=== PATIENT | female | born 1980 | race Caucasian/White ===

== ENCOUNTER → 2021-11-01 | Outpatient (CLI) | payer OTHER ==
[~2021-11-01] MED LIST: ALBU90OI INH; ALBU90OI6 INH; AMOX500 PO; Bactrim Ds Tab1 EACH PO; HYDACE5325 PO; OMEP20ER PO; Pyridium100 MG PO; RXHYD5325 PO; [UNRECOGNIZED DRUG - REMARK]; [UNRECOGNIZED DRUG - REMARK]
== END | disposition home or self-care (01) ==
LOC: LAB SHORT 14:35
DX: R30.0 Dysuria (principal)
CPT/HCPCS: 87086

== ENCOUNTER 2022-03-22 23:06 | Emergency (ER) | payer OTHER ==
[~2022-03-22] VITALS: Ht 165.1 cm; Wt 127.0 kg
[2022-03-22 23:28] LABS: Source, Urine Voided
[2022-03-22 23:47] LABS: Appearance, Urine Hazy (Clear); Blood, Urine 5+ (Neg); Glucose Qualitative, Urine Neg (Neg); Ketones, Urine Neg (Neg); Leukocyte Esterase, Urine 3+ (Neg); Nitrite, Urine Pos (Neg); Protein, Urine 2+ (Neg); Urobilinogen, Urine 2+ (Normal)
[2022-03-22 23:55] LABS: Bilirubin, Urine 2+ (Neg); Color, Urine Orange (P-Yellow)
[2022-03-22 23:56] LABS: Bacteria Mod /hpf; Squamous Epithelial Cells Few /hpf (Few); White Blood Cells, Urine 25-50 /hpf (0-5)
[2022-03-23] MEDS ORDERED: CEPH500 PO (00:29)
== END 2022-03-23 00:56 | disposition home or self-care (01) ==
LOC: ER 23:06
PROVIDERS: Student in an Organized Health Care Education/Training Program
DX: N39.0 Urinary tract infection, site not specified (principal); J45.909 Unspecified asthma, uncomplicated; Z88.6 Allergy status to analgesic agent; Z91.010 Allergy to peanuts; Z79.899 Other long term (current) drug therapy
CPT/HCPCS: 81001; 87077; 87086; 87186; 99283; A9270

== ENCOUNTER 2023-06-27 18:05 | Emergency (ER) | payer OTHER ==
[~2023-06-27] VITALS: Ht 165.1 cm; Wt 136.1 kg
[~2023-06-27 18:05] MED LIST changes: +CEPH500 PO
[2023-06-27 18:09] VITALS: BP 206/120
[2023-06-27] MEDS ORDERED: CYCL10 PO (19:30)
== END 2023-06-27 20:27 | disposition home or self-care (01) ==
LOC: ER 18:05
DX: S29.012A Strain of muscle and tendon of back wall of thorax, initial encounter (principal); Z91.010 Allergy to peanuts; Z88.8 Allergy status to other drugs, medicaments and biological substances; Z79.2 Long term (current) use of antibiotics; Z79.899 Other long term (current) drug therapy; V49.9XXA Car occupant (driver) (passenger) injured in unspecified traffic accident, initial encounter
CPT/HCPCS: 72070; 96372; 99284-25; A9270; J1885

== ENCOUNTER 2024-11-23 17:50 | Emergency (ER) | payer OTHER ==
[~2024-11-23] VITALS: Ht 165.1 cm; Wt 129.3 kg
[~2024-11-23 17:50] MED LIST changes: +CYCL10 PO
[2024-11-23 18:43] LABS: BASOPHILS ABSOLUTE AUTO 0.05 K/mm3 (0.00-0.23); BASOPHILS PERCENT AUTO 0 % (0-2); EOSINOPHILS ABSOLUTE AUTO 0.02 K/mm3 (0.00-0.68); EOSINOPHILS PERCENT AUTO 0 % (0-6); Hematocrit 38.9 % (33.0-51.0); Hemoglobin 13.1 g/dL (11.5-16.0); IMMATURE GRAN ABSOLUTE AUTO 0.07 K/mm3 (0.00-0.10); IMMATURE GRAN PERCENT AUTO 0 % (0-1); LYMPHOCYTES ABSOLUTE AUTO 0.93 K/mm3 (0.84-5.20); LYMPHOCYTES PERCENT AUTO 6 % (21-46); MONOCYTES ABSOLUTE AUTO 0.57 K/mm3 (0.16-1.47); MONOCYTES PERCENT AUTO 3 % (4-13); Mean Corpuscular HGB 29.4 pg (26.0-34.0); Mean Corpuscular HGB Conc 33.7 g/dL (31.5-36.5); Mean Corpuscular Volume 87 fL (80-100); NEUTROPHILS ABSOLUTE AUTO 15.34 K/mm3 (1.96-9.15); NEUTROPHILS PERCENT AUTO 90 % (41-73); Platelet Count 304 K/mm3 (150-400); RDW Coefficient Variation 13.4 % (11.7-14.2); RDW Standard Deviation 43.1 fL (35.1-46.3); Red Blood Cell Count 4.46 M/mm3 (3.80-5.20); White Blood Cell Count 16.98 K/mm3 (4.00-11.30)
[2024-11-23 18:58] LABS: Albumin, Blood 3.2 g/dL (3.4-5.0); Albumin/Globulin Ratio 0.6 (0.8-1.8); Bilirubin, Total 0.3 mg/dL (0.1-1.0); Bun/Creatinine Ratio 17.6 (12.0-20.0); Calcium, Blood 9.3 mg/dL (8.5-10.1); Creatinine, Blood 0.85 mg/dL (0.40-1.00); Globulin, Blood 5.2 g/dL (2.2-4.0); Potassium, Blood 3.5 mmol/L (3.5-5.5); Total Protein, Blood 8.4 g/dL (6.4-8.2)
[2024-11-23] MEDS ORDERED: Inderal40 MG PO (21:51)
[2024-11-23] MEDS ORDERED: MONT10T PO (21:52)
[2024-11-23] MEDS ORDERED: LOSA50 PO (21:52)
[2024-11-23] MEDS ORDERED: MELO7.5 PO (21:52)
[2024-11-23] MEDS ORDERED: Ketorolac Tromethamine 15mg Vial IV ONE (22:30)
[2024-11-23] MEDS ORDERED: Ondansetron HCl 2 MG / ML 2ML Vial IV ONE (22:30)
[2024-11-23] MEDS ORDERED: Lactated Ringer's 1,000 ML IV ONE (22:30)
[2024-11-23 23:32] LABS: Influenza A, PCR NEGATIVE (NEGATIVE); Influenza B, PCR NEGATIVE (NEGATIVE); Resp Syncytial Virus, PCR NEGATIVE (NEGATIVE); SARS-Cov-2 (COVID-19) PCR, MMC NEGATIVE (NEGATIVE)
[2024-11-23 23:56] VITALS: BP 132/93
== END 2024-11-24 | disposition home or self-care (01) ==
LOC: ER 17:50
PROVIDERS: Physician Assistant; Student in an Organized Health Care Education/Training Program
DX: R07.2 Precordial pain (principal); J06.9 Acute upper respiratory infection, unspecified; R51.9 Headache, unspecified; J45.909 Unspecified asthma, uncomplicated; K21.9 Gastro-esophageal reflux disease without esophagitis; Z79.899 Other long term (current) drug therapy; Z88.6 Allergy status to analgesic agent; Z91.010 Allergy to peanuts
CPT/HCPCS: 0241U; 71046; 80053; 84484; 85025; 93005; 93010; 96361; 96374; 96375; 99285-25; J1885; J2405; J7120